=== PATIENT | female | born 1965 | race Caucasian/White ===

== ENCOUNTER 2019-07-07 17:28 | Emergency (ER) | payer OTHER ==
[~2019-07-07] VITALS: Ht 162.6 cm; Wt 74.8 kg
[2019-07-07 18:35] VITALS: BP 142/90
--- NOTE | 2019-07-10 14:34 | EKG ---
[place] [address] ELECTROCARDIOGRAM REPORT Name: VIBHA DALEY Room: [facility]#: [id number] Admission: 07/07/19 Attend Phys: Discharge: 07/07/19 Date of : 63 Report #: [id number] THIS REPORT FOR: //name// [facility] ED Test Date: 2019-07-07 Test Time: 17:34:00 Pat Name: VIBHA DALEY Department: Room: Gender: F [employer] Operator: ELISSA : 1965 Requested By: Hasmukh Kwan Order Number: [id number] Kayla MD: Robson Simmons Measurements Intervals [place] Rate: 96 P: 65 TN: 140 QRS: 31 QRSD: 105 T: 29 QT: 337 QTc: 426 Interpretive Statements Sinus rhythm Left atrial enlargement RSR' in V1 or V2, right VCD Borderline T abnormalities, anterior leads No previous ECG available for comparison Electronically Signed On 07-10-2019 14:34:20 CDT by Robson Simmons [email or web address] <ELECTRONICALLY SIGNED> By: Robson Simmons MD, [facility] 07/10/19 1434 1734 173 Robson Simmons MD, FACC /EPI
== END 2019-07-07 18:36 | disposition home or self-care (01) ==
LOC: M.ERS 17:28
DX: R00.2 Palpitations (principal)